=== PATIENT | male | born 1985 | race Caucasian/White ===

== ENCOUNTER 2020-02-06 05:32 | Emergency (ER) | payer SELFPAY ==
--- NOTE | 2020-02-06 | ECG_ITS ---
Test Reason : CP Blood Pressure : / mmHG Vent. Rate : 105 BPM Atrial Rate : 105 BPM P-R Int : 172 ms QRS Dur : 082 ms QT Int : 344 ms P-R-T Axes : 080 070 061 degrees QTc Int : 454 ms Sinus tachycardia Otherwise normal ECG No previous ECGs available Referred By: Tiffani Cohen Electronically Signed By:Tone Church
[2020-02-06 05:43] VITALS: BP 148/88; PULSE 99; RESP 18; TEMP 36.8; O2SAT 98; BMI 25.8
--- NOTE | 2020-02-06 05:50 | XR_ITS ---
EXAMINATION: CHEST 1 VIEW CLINICAL INFORMATION: Chest pain. COMPARISON: None. TECHNIQUE: An AP view of the chest is provided. FINDINGS: The cardiac silhouette is not enlarged. The mediastinal and hilar contours are unremarkable. There are neither pleural effusions nor pneumothoraces. There are no consolidations. The osseous structures are unremarkable. XR/XR chest 1V IMPRESSION: No evidence for acute disease.
--- NOTE | 2020-02-06 05:54 | PC.NURSE ---
pt reports to the er with complaints of new onset chest pain that awoke him from his sleep at approx 430 am. pt states he has a hx of anxiety and has had a similar expierence in past and was taking a medication for it but could not think of the name. pt denies taking it before coming to the ed today. pt is baez x 3 with equal and non labored rr. pt skin wpd. pt ambulates without assistance, speaking in clear and full sentences. pt on ekg tech 98 bpm. all vitals wnl. plan for labs and urine sample. pt in nad at this time.
--- NOTE | 2020-02-06 06:32 | PC.NURSE ---
plan for GI cocktail
[2020-02-06 06:33] LABS: Amphetamine Screen Urine Not Detected (Not Detect); Barbiturates, Urine Not Detected (Not Detect); Benzodiazepines Screen Urine Not Detected (Not Detect); Cannabinoid Screen Urine Not Detected (Not Detect); Cocaine Screen Urine Not Detected (Not Detect); Opiate Screen Urine Not Detected (Not Detect); Phencyclidine Screen Urine Not Detected (Not Detect)
[2020-02-06] MEDS: Magnesium Hydrox/Alum Hydrox 30 ML ORAL.SUSP PO (06:37)
[2020-02-06] MEDS: Lidocaine HCl Viscous 2 % 15 ML SOLUTION 10 ML MUCOUS MEM (06:37)
[2020-02-06 06:38] LABS: D Dimer < 200 NG/ML
[2020-02-06 06:51] LABS: Troponin-I High Sensitivity < 3.5 ng/L (<3.5-35.0)
--- NOTE | 2020-02-06 07:10 | ED.CHESTPAIN ---
HPI - Chest Pain General Chief Complaint: Chest Pain Stated Complaint: Chest pain Time Seen by Provider: 02/06/20 05:50 Source: patient Mode of arrival: ambulatory Limitations: no limitations History of Present Illness HPI narrative: This is a 34-year-old male without significant past medical history other than anxiety who states that a woke up from sleep this morning with a pinching sharp left-sided chest pain, nonradiating, not associated with deep inspiration or movement, and notably not exacerbated by change in position (leaning forward/laying back). Otherwise, he denies fevers, chills, sore throat, cough, GI symptoms and states that this has never happened to him before. Related Data Previous Rx's Medication Instructions Recorded omeprazole 40 mg PO DAILY 30 Days #30 cap 02/06/20 Allergies Allergy/AdvReac Type Severity Reaction Status Date / Time aspirin [ASPIRIN] Allergy Unknown UNKNOWN Verified 02/06/20 05:39 Review of Systems Review of Systems: Pertinent positives and negatives as stated in HPI 10 point review of systems otherwise negative. PMFSH Past Medical History Source: nursing notes reviewed Medical History Anxiety Social History Social History Advance Directives: No Advance Directives Information Provided: No Physical Exam Vital Signs: Vital Signs: Last Vital Signs Temp 98.2 F 02/06/20 05:43 Pulse 99 02/06/20 05:43 Resp 18 02/06/20 05:43 BP 148/88 H 02/06/20 05:43 Pulse Ox 98 02/06/20 05:43 Body Mass Index 25.8 VITAL SIGNS: Reviewed. GENERAL: Well developed, well nourished, in no acute distress. HEAD: Normocephalic/atraumatic, EYES: PERRLA, EOMI intact without pain, no nystagmus/pallor/icterus noted EARS: Ext canals without abnormality, TMs non-bulging and non-erythematous NOSE: Nares patent bilateral OROPHARYNX: no oral lesions noted, posterior pharynx clear and non-erythematous without noted tonsillar enlargement/erythema/exudates NECK: Supple, no adenopathy LUNGS: Normal breath sounds. No adventitious sounds or accessory muscle use. SpO2<98> CARDIOVASCULAR: Regular rate and rhythm without noted murmurs, no JVD or lower extremity edema. ABDOMEN: Soft, non-tender, non-distended with bowel sounds. No rigidity. No guarding. No palpable masses or hernias noted MUSCULOSKELETAL: No tenderness, deformities, or effusions noted on gross inspection. EXTREMITIES: No cyanosis, clubbing or edema. SKIN: Inspection of the skin reveals no rashes, ulcerations, jaundice, pallor, or petechiae. NEUROLOGIC: Alert and oriented x 4. Strength and sensation to light touch were grossly intact x 4. Course Course Course Narrative: This is a 34 year male with history and clinical presentation most consistent with likely costochondritis versus acid reflux but will rule out PE, pneumonia, cardiac ischemia. -D-dimer, high sensitivity troponin, EKG, chest x-ray, GI cocktail, DEL RIO On review of all investigations there are no acute findings to suggest PE, pneumonia, cardiac ischemia and will presumptively treat for acid reflux versus costochondritis. All results and findings were discussed with patient bedside and he was discharged in stable condition with recommendations to follow-up with his primary care provider as soon as he establishes a physician. MDM - Chest Pain Lab Data Labs: Lab Results 02/06/20 02/06/20 02/06/20 Range/Units 06:00 06:00 06:00 D-Dimer < 200 NG/ML Troponin I High Sens < 3.5 (<3.5-35.0) ng/L Urine Opiates Screen Not Detected (Not Detect) Ur Barbiturates Screen Not Detected (Not Detect) Ur Phencyclidine Scrn Not Detected (Not Detect) Ur Amphetamines Screen Not Detected (Not Detect) U Benzodiazepines Scrn Not Detected (Not Detect) Urine Cocaine Screen Not Detected (Not Detect) U Marijuana (THC) Screen Not Detected (Not Detect) Discharge Plan Discharge Clinical Impression: Atypical chest pain Patient Disposition: Home, Self-Care Instructions: Chest Pain (ED) Additional Instructions: 1. Tylenol 1000 mg, orally, every 6 hours as needed for pain control. Do not exceed 4000 mg within 24 hours. 2. Lidocaine patch, these are available in every [facility], and should be applied to area of maximal tenderness as directed on the outside packaging. 3. Please return to this emergency department should she feel any worsening of your symptoms or develops any fevers or chills. The patient and/or family acknowledge understanding of results (as applicable), diagnosis, treatment plan, need for follow up, and symptoms that should prompt a return to the emergency room. Prescriptions: New omeprazole 40 mg capsule,delayed release(DR/EC) 40 mg PO DAILY 30 Days Qty: 30 RF: 0 Referrals: Physician,None [Primary Care Provider] - 2 days (Re-evaluation a typical chest pain.)
[2020-02-06 07:13] VITALS: PULSE 77; RESP 18
== END 2020-02-06 07:31 | disposition home or self-care (01) ==
PROVIDERS: Emergency Provider Student in an Organized Health Care Education/Training Program
DX: R07.89 Other chest pain (principal); F41.9 Anxiety disorder, unspecified; Z79.899 Other long term (current) drug therapy
CPT/HCPCS: 36415; 71045; 80307; 84484; 85379; 93005; 99284

== ENCOUNTER 2020-11-13 21:05 | Emergency (ER) | payer SELFPAY ==
--- NOTE | 2020-11-13 | ECG_ITS ---
Test Reason : CHEST PAIN Blood Pressure : / mmHG Vent. Rate : 078 BPM Atrial Rate : 078 BPM P-R Int : 196 ms QRS Dur : 080 ms QT Int : 352 ms P-R-T Axes : 080 072 058 degrees QTc Int : 401 ms Normal sinus rhythm with sinus arrhythmia Possible Left atrial enlargement Borderline ECG When compared with ECG of 06-FEB-2020 05:44, QT has shortened Heart rate has decreased Referred By: Generic ED Physician Electronically Signed By:DENITA LUX
[2020-11-13 21:07] VITALS: BP 124/65; PULSE 90; RESP 18; TEMP 37; O2SAT 98; BMI 26.6
[2020-11-13 23:20] VITALS: BP 134/83; PULSE 66; RESP 13; TEMP 36.8; O2SAT 100
--- NOTE | 2020-11-13 23:23 | PC.NURSE ---
Pt ambulates to ED 2 with steady, independent gait. Pt placed on bedside escapement maker, VS assessed and stable. Pt aaox4, reports pain began around 7pm while at [employer]. Pt reports he has anxiety regarding being in crowds, and felt anxious at that time. Pt reports pain then progressed to his back. pt denies nausea, vomiting at that time. pt reports I did feel a little weak at that time, but not now. Pt reports his sx have improved since arrival to ED. Dr Tate to bedside. Pt endorses 2/10 R sided chest pain at this time. Pt NSR on escapement maker, stretcher low locked, rails raised, call pérez within reach.
[2020-11-13 23:44] LABS: MANUAL DIFF FLAG NO
--- NOTE | 2020-11-13 23:47 | ED_ITS ---
HPI - Chest Pain General Chief Complaint: Chest Pain Stated Complaint: Chest pain Time Seen by Provider: 11/13/20 23:19 Source: patient and old records reviewed History of Present Illness HPI narrative: Patient complaining of chest pain which started approximately 5 hours ago. At rest. Sharp. Right-sided. Radiating through the back. Worse with movement and pal pation. It is starting to subside now. He was worried it might be a heart attack and that he would not wake up in the morning so came to the emergency department. He has had it is chest pain in the past which has been attributed to anxiety disorder. He is currently on no medications for anxiety. He denies tobacco use. No history of high cholesterol or hypertension. No family history of early cardiac disease. He was seen in the emergency department once earlier this year for chest pain which he states felt a little different as it was not quite as sharp. The workup at that time was reassuring. No change with exertion. No precipitating factors. Related Data Previous Rx's Medication Instructions Recorded omeprazole 40 mg capsule,delayed 40 mg PO DAILY 30 Days #30 cap 02/06/20 release Allergies Allergy/AdvReac Type Severity Reaction Status Date / Time aspirin [ASPIRIN] Allergy Intermediate Rash Verified 11/13/20 23:22 Review of Systems Constitutional: Comments: No fevers or chills Cardiovascular: Comments: Chest pain as described Respiratory: Comments: No dyspnea or cough Gastrointestinal: Comments: No nausea or vomiting Musculoskeletal: Comments: No leg pain or swelling Psychiatric: Comments: Anxiety in baseline stress for patient [facility] Past Medical History Medical History (Updated 11/13/20 @ 23:52 by Yayo Tate MD) Anxiety Migraines Social History Social History Alcohol intake: current Alcohol intake frequency: holidays/special occasions only Patient Tobacco Use Status: Never used Tobacco Use of substances other than those prescribed or required for medical reasons: Yes Substance Use Type: Marijuana Advance Directives: No Advance Directives Information Provided: No Physical Exam Vital Signs: Vital Signs: Last Vital Signs Temp 98.2 F 11/13/20 23:20 Pulse 66 11/13/20 23:20 Resp 13 11/13/20 23:20 BP 134/83 11/13/20 23:20 Pulse Ox 100 11/13/20 23:20 Body Mass Index 26.6 Const: Other: No acute distress. Anxious appearing however Chest: Other: Chest with mild tenderness right inferior anterior chest. This reproduces his symptoms. Resp: Other: Clear and equal bilaterally without wheezes rales or rhonchi Cardio: Other: Regular rate and rhythm. No murmurs rubs or gallops GI: Other: Abdomen is soft nontender nondistended Skin: Other: No rash Psych: Other: Patient appears anxious but otherwise no real evidence of risk to self or others Course Course Course Narrative: Chest pain Musculoskeletal chest pain Acute coronary syndrome less likely Anxiety 12:27 p.m.. Troponin is normal. Remainder of lab work is also normal. Stable for discharge home MDM - Chest Pain Lab Data Result diagrams: 11/13/20 23:39 11/13/20 23:39 Labs: Lab Results 11/13/20 11/13/20 11/13/20 Range/Units 23:39 23:39 23:39 WBC 7.6 (4.8-10.8) X10*3/uL RBC 5.11 (4.60-5.80) X10*6/uL Hgb 15.9 (14.0-18.0) g/dl Hct 44.7 (42-52) % MCV 87.5 (80-98) fL MCH 31.1 (27.0-33.0) pg MCHC 35.6 (31.0-36.0) g/dl RDW 12.2 (11.0-16.0) % Plt Count 204 (160-400) X10*3/uL MPV 11.1 (9.4-12.4) fL Immature Gran % (Auto) 0.3 (0.0-0.4) % Neut % (Auto) 57.2 (45-73) % Lymph % (Auto) 32.0 (20-40) % [place] % (Auto) 8.6 (2-11) % Eos % (Auto) 1.6 (0-4) % Baso % (Auto) 0.3 (0-2) % Lymph # (Auto) 2.4 (1.2-4.9) X10*3/uL [place] # (Auto) 0.7 (0.1-1.2) X10*3/uL Eos # (Auto) 0.1 (0.0-0.4) X10*3/uL Baso # (Auto) 0.0 (0.0-0.2) X10*3/uL Abs Immat Gran (auto) 0.02 (0.00-0.03) X10*3/uL Absolute Neuts (auto) 4.3 (2.0-8.3) X10*3/uL Absolute Nucleated RBC 0.000 (0.0-0.012) X10*3/uL Nucleated RBC % (auto) 0.0 (0.0-0.2) /100WBC Sodium 139 (135-145) mmol/L Potassium 4.2 (3.3-5.1) mmol/L Chloride 105 (96-108) mmol/L Carbon Dioxide 24 (22-29) mmol/L Anion Gap 14 (12-20) BUN 12 (9-16) mg/dL Creatinine 0.96 (0.5-1.4) mg/dL Estim Creat Clear Calc 105.8 Estimated GFR > 60 Random Glucose 88 (60-115) mg/dL Calcium 10.0 (8.4-10.2) mg/dL Total Bilirubin 0.7 (0.0-1.0) mg/dL AST 21 (5-37) U/L ALT 18 (0-40) U/L Alkaline Phosphatase 79 (39-117) U/L Troponin I High Sens < 3.5 (<3.5-35.0) ng/L Total Protein 7.4 (6.5-8.0) g/dL Albumin 4.6 (3.5-5.0) g/dL Scores Heart Score History: -0- slightly suspicious ECG: -0- normal Age: -0- < or = 45 Risk factory: -0- no risk factors known Troponin: -0- < or = normal limit Score: 0 Risk: 1.7% Discharge Plan Discharge Clinical Impression: Anxiety Chest pain Qualifiers: Chest pain type: other chest pain Qualified Code(s): R07.89 - Other chest pain Patient Disposition: Home, Self-Care Instructions: Anxiety (ED), Chest Wall Pain (ED) Prescriptions: No Action omeprazole 40 mg capsule,delayed release(DR/EC) 40 mg PO DAILY 30 Days Qty: 30 RF: 0
[2020-11-14 00:08] LABS: Alanine Aminotransferase 18 U/L (0-40); Albumin Level 4.6 g/dL (3.5-5.0); Alkaline Phosphatase 79 U/L (39-117); Anion Gap 14 (12-20); Aspartate Amino Transferase 21 U/L (5-37); Bilirubin Total 0.7 mg/dL (0.0-1.0); Blood Urea Nitrogen 12 mg/dL (9-16); Carbon Dioxide 24 mmol/L (22-29); Chloride 105 mmol/L (96-108); Creatinine Clr Calc Pharmacy 105.8; Estimated Glomerular Filt Rate > 60; Glucose Random 88 mg/dL (60-115); Potassium 4.2 mmol/L (3.3-5.1); Sodium 139 mmol/L (135-145); Total Protein 7.4 g/dL (6.5-8.0)
[2020-11-14 00:14] LABS: Troponin-I High Sensitivity < 3.5 ng/L (<3.5-35.0)
[2020-11-14 00:18] LABS: Basophils Percent Auto 0.3 % (0-2); Eosinophils Absolute Auto 0.1 X10*3/uL (0.0-0.4); Eosinophils Percent Auto 1.6 % (0-4); Hematocrit 44.7 % (42-52); Hemoglobin 15.9 g/dl (14.0-18.0); Imm Gran Abs Auto 0.02 X10*3/uL (0.00-0.03); Imm Gran Pct Auto 0.3 % (0.0-0.4); Lymphocytes Absolute Auto 2.4 X10*3/uL (1.2-4.9); Mean Corpuscular HGB Conc 35.6 g/dl (31.0-36.0); Mean Corpuscular Hemoglobin 31.1 pg (27.0-33.0); Mean Corpuscular Volume 87.5 fL (80-98); Mean Platelet Volume 11.1 fL (9.4-12.4); Monocytes Absolute Auto 0.7 X10*3/uL (0.1-1.2); Monocytes Percent Auto 8.6 % (2-11); Neutrophils Absolute Auto 4.3 X10*3/uL (2.0-8.3); Neutrophils Percent Auto 57.2 % (45-73); Platelet Count 204 X10*3/uL (160-400); Red Blood Count 5.11 X10*6/uL (4.60-5.80); Red Cell Distribution Width 12.2 % (11.0-16.0); White Blood Count 7.6 X10*3/uL (4.8-10.8)
[2020-11-14 00:51] VITALS: BP 115/69; PULSE 63; RESP 13; O2SAT 99
== END 2020-11-14 00:58 | disposition home or self-care (01) ==
PROVIDERS: Emergency Provider Emergency Medicine
DX: R07.89 Other chest pain (principal); F41.1 Generalized anxiety disorder; F43.0 Acute stress reaction; Z79.899 Other long term (current) drug therapy
CPT/HCPCS: 36415; 80053; 84484; 85025; 93005; 99283; 99285